=== PATIENT | female | born 2000 | race Caucasian/White ===

== ENCOUNTER 2019-12-24 05:59 | Observation (INO) | payer MEDICAID, OTHER ==
[~2019-12-24] VITALS: Ht 165.1 cm; Wt 105.2 kg
[2019-12-24 07:19] LABS: BASOPHILS % 0.5 % (0.0-2.0); EOSINOPHILS % 1.4 % (0.0-5.0); HEMATOCRIT. 27.8 % (36.0-48.0); HEMOGLOBIN. 9.1 g/dL (12.0-16.0); LYMPHOCYTES % 20.7 % (20.0-50.0); MEAN CORPUSCULAR HEMOGLOBIN 24.4 pg (28.0-32.0); MEAN CORPUSCULAR VOLUME 74.6 fL (81.0-99.0); MEAN PLATELET VOLUME 8.4 fl (7.4-10.4); MONOCYTES % 4.5 % (2.0-8.0); NEUTROPHILS % 72.9 % (40.0-76.0); PLATELET 270 x1000/uL (130-400); RED BLOOD CELL COUNT 3.73 mill/uL (4.2-5.4); RED CELL DISTRIBUTION WIDTH 15.8 % (11.6-14.6)
[2019-12-24 07:25] LABS: CLARITY URINE CLEAR (CLEAR); COLOR URINE DK YELLOW (YELLOW); KETONES URINE 1+ (NEGATIVE); LEUKOCYTE ESTERASE URINE NEGATIVE (NEGATIVE); NITRITE URINE NEGATIVE (NEGATIVE); OCCULT BLOOD URINE NEGATIVE (NEGATIVE); PH URINE 6.5 (4.5-8.0); PROTEIN URINE NEGATIVE (NEGATIVE); SPECIFIC GRAVITY URINE 1.027 (1.005-1.030)
[2019-12-24 07:36] LABS: CHLORIDE 108 mEq/L (98-107)
== END 2019-12-24 09:00 | disposition home or self-care (01) ==
LOC: L&D 05:59 → 8 EST LDRP 06:37
PROVIDERS: ADMIT Obstetrics & Gynecology; ATTEND Obstetrics & Gynecology
DX: O99.89 Other specified diseases and conditions complicating pregnancy, childbirth and the puerperium (principal); M54.5 Low back pain; Z3A.34 34 weeks gestation of pregnancy
CPT/HCPCS: 36415; 59025; 80048; 81003; 85025; G0378; 99281

== ENCOUNTER 2020-01-16 02:48 | Observation (INO) | payer MEDICAID ==
[~2020-01-16] VITALS: Ht 165.1 cm; Wt 104.3 kg
[2020-01-16] MEDS ORDERED: PNV1TABL76 PO (04:23)
[2020-01-16] MEDS ORDERED: LACTATED RINGERS 1,000 ML IV SCH (04:30)
[2020-01-16 06:24] LABS: CLARITY URINE TURBID (CLEAR); COLOR URINE DK YELLOW (YELLOW); KETONES URINE NEGATIVE (NEGATIVE); LEUKOCYTE ESTERASE URINE 1+ (NEGATIVE); NITRITE URINE POSITIVE (NEGATIVE); OCCULT BLOOD URINE NEGATIVE (NEGATIVE); PROTEIN URINE TRACE (NEGATIVE); SPECIFIC GRAVITY URINE 1.036 (1.005-1.030)
[2020-01-16] MEDS ORDERED: CEFTRIAXONE 2 G in DEXTROSE 5% WATER 50 ML IV SCH (08:00)
[2020-01-16] MEDS ORDERED: CEFTRIAXONE 2 G in DEXT 5% WATER 100 ML IV SCH (08:00)
== END 2020-01-16 08:55 | disposition home or self-care (01) ==
LOC: 8 EST LDRP 02:48
PROVIDERS: ADMIT Obstetrics & Gynecology; ATTEND Obstetrics & Gynecology
DX: O26.893 Other specified pregnancy related conditions, third trimester (principal); R10.30 Lower abdominal pain, unspecified; O99.89 Other specified diseases and conditions complicating pregnancy, childbirth and the puerperium; M54.5 Low back pain; O62.9 Abnormality of forces of labor, unspecified; Z3A.36 36 weeks gestation of pregnancy; Z98.891 History of uterine scar from previous surgery
CPT/HCPCS: 59025; 81003; 96361; 96365; G0378; 96360; 99281; J0696; J7060

== ENCOUNTER 2020-01-22 13:06 | Observation (INO) | payer MEDICAID ==
[~2020-01-22] VITALS: Ht 167.6 cm; Wt 106.6 kg
[~2020-01-22 13:06] MED LIST: PNV1TABL76 PO
[2020-01-22] MEDS ORDERED: DEXT 5%/LACTATED RINGERS 1,000 ML IV NR (14:15)
[2020-01-22 15:01] LABS: CHLORIDE 107 mEq/L (98-107)
[2020-01-22 15:31] LABS: CLARITY URINE CLOUDY (CLEAR); COLOR URINE DK YELLOW (YELLOW); KETONES URINE 3+ (NEGATIVE); LEUKOCYTE ESTERASE URINE 1+ (NEGATIVE); NITRITE URINE NEGATIVE (NEGATIVE); OCCULT BLOOD URINE NEGATIVE (NEGATIVE); PH URINE 6.5 (4.5-8.0); PROTEIN URINE TRACE (NEGATIVE); SPECIFIC GRAVITY URINE 1.026 (1.005-1.030)
[2020-01-22 15:57] LABS: BASOPHILS % 0.2 % (0.0-2.0); EOSINOPHILS % 0.3 % (0.0-5.0); HEMATOCRIT. 30.2 % (36.0-48.0); HEMOGLOBIN. 9.6 g/dL (12.0-16.0); LYMPHOCYTES % 10.5 % (20.0-50.0); MEAN CORPUSCULAR HEMOGLOBIN 22.8 pg (28.0-32.0); MEAN CORPUSCULAR VOLUME 71.9 fL (81.0-99.0); MEAN PLATELET VOLUME 9.1 fl (7.4-10.4); MONOCYTES % 4.1 % (2.0-8.0); NEUTROPHILS % 84.9 % (40.0-76.0); PLATELET 242 x1000/uL (130-400); RED BLOOD CELL COUNT 4.21 mill/uL (4.2-5.4); RED CELL DISTRIBUTION WIDTH 16.9 % (11.6-14.6)
[2020-01-22] MEDS ORDERED: CEFTRIAXONE 2 G in DEXTROSE 5% WATER 50 ML IV ONE (16:00)
[2020-01-22] MEDS ORDERED: CEFTRIAXONE 2 G PREMIX 50 ML IV ONE (16:00)
== END 2020-01-22 17:50 | disposition home or self-care (01) ==
LOC: L&D 13:06
PROVIDERS: ADMIT Obstetrics & Gynecology; ATTEND Obstetrics & Gynecology
DX: O21.2 Late vomiting of pregnancy (principal); Z20.828 Contact with and (suspected) exposure to other viral communicable diseases; O26.893 Other specified pregnancy related conditions, third trimester; R19.7 Diarrhea, unspecified; Z3A.37 37 weeks gestation of pregnancy
CPT/HCPCS: 36415; 59025; 80053; 81003; 85025; 96365; G0378; J0696; J7060; U0003; 96360; 99281

== ENCOUNTER → 2020-02-01 | Outpatient (CLI) | payer MEDICAID | END | disposition home or self-care (01) | LOC: LAB 09:11 | PROVIDERS: ATTEND Obstetrics & Gynecology | DX: Z20.828 Contact with and (suspected) exposure to other viral communicable diseases (principal) | CPT/HCPCS: C9803; U0003 ==

== ENCOUNTER 2020-07-05 20:52 | Inpatient (IN) | payer MEDICAID ==
[~2020-07-05] VITALS: Ht 165.1 cm; Wt 97.5 kg
[2020-07-05] MEDS ORDERED: KETOROLAC 60MG/2ML VIAL IM STA (21:40)
[2020-07-05] MEDS ORDERED: HYDROCODONE/ACETAMINOPHEN 5/325MG TABLET PO STA (21:40)
[2020-07-05 22:16] LABS: CLARITY URINE TURBID (CLEAR); COLOR URINE YELLOW (YELLOW); KETONES URINE NEGATIVE (NEGATIVE); LEUKOCYTE ESTERASE URINE NEGATIVE (NEGATIVE); NITRITE URINE NEGATIVE (NEGATIVE); OCCULT BLOOD URINE NEGATIVE (NEGATIVE); PROTEIN URINE NEGATIVE (NEGATIVE); SPECIFIC GRAVITY URINE 1.026 (1.005-1.030); UROBILINOGEN URINE 0.2 E.U./dL (0.2-1.0)
[2020-07-05 22:19] LABS: BASOPHILS % 0.3 % (0.0-2.0); EOSINOPHILS % 2.2 % (0.0-5.0); HEMATOCRIT. 35.2 % (36.0-48.0); HEMOGLOBIN. 11.6 g/dL (12.0-16.0); LYMPHOCYTES % 23.5 % (20.0-50.0); MEAN CORPUSCULAR HEMOGLOBIN 24.4 pg (28.0-32.0); MEAN CORPUSCULAR VOLUME 74.1 fL (81.0-99.0); MEAN PLATELET VOLUME 8.2 fl (7.4-10.4); MONOCYTES % 4.4 % (2.0-8.0); NEUTROPHILS % 69.6 % (40.0-76.0); PLATELET 304 x1000/uL (130-400); RED BLOOD CELL COUNT 4.75 mill/uL (4.2-5.4); RED CELL DISTRIBUTION WIDTH 16.4 % (11.6-14.6)
[2020-07-05 22:23] LABS: CHLORIDE 109 mEq/L (98-107)
[2020-07-05 22:32] LABS: HCG SCREEN NEGATIVE
[2020-07-05] MEDS ORDERED: PIPERACILLIN/TAZ 3.375G PREMIX 50 ML IV ONE (23:00)
[2020-07-06] MEDS ORDERED: HYDROCODONE/ACETAMINOPHEN 5/325MG TABLET PO SCH (00:30)
[2020-07-06] MEDS ORDERED: MORPHINE SULFATE 2 MG/ML CPJ (NOT FOR IM USE) IV SCH (02:30)
[2020-07-06] MEDS ORDERED: ONDANSETRON HCL 4MG/2ML INJ IV PRN (02:30)
[2020-07-06] MEDS: MORPHINE SULFATE 2 MG/ML CPJ (NOT FOR IM USE) IV PRN ×2 (02:57→21:21)
[2020-07-06] MEDS ORDERED: LEVOFLOXACIN 500MG PREMIX 100 ML IV SCH (03:00)
[2020-07-06 03:13] VITALS: BP 110/65
[2020-07-06] MEDS: DEXT 5%/0.45% NACL 1000ML 1,000 ML IV SCH ×3 (03:45→19:25)
[2020-07-06 04:00] VITALS: BP 100/54
[2020-07-06 08:00] VITALS: BP 107/61
[2020-07-06 11:54] VITALS: BP 94/56
[2020-07-06 16:00] VITALS: BP 102/60
[2020-07-06 20:00] VITALS: BP 108/61
[2020-07-07] VITALS: BP 107/53
[2020-07-07 04:00] VITALS: BP 97/52
[2020-07-07] MEDS: DEXT 5%/0.45% NACL 1000ML 1,000 ML IV SCH ×3 (04:32→18:08)
[2020-07-07] MEDS ORDERED: SKIN ADHESIVE 0.7 GM EA TOP ONE (07:33)
[2020-07-07] MEDS ORDERED: BUPIVACAINE HCL 0.5% (5MG/ML) 50ML ONE (07:34)
[2020-07-07 08:00] VITALS: BP 104/66
[2020-07-07] MEDS: LEVOFLOXACIN 500MG PREMIX 100 ML IV SCH (09:46)
[2020-07-07 09:55] LABS: BASOPHILS % 0.4 % (0.0-2.0); EOSINOPHILS % 4.4 % (0.0-5.0); HEMATOCRIT. 35.2 % (36.0-48.0); HEMOGLOBIN. 11.2 g/dL (12.0-16.0); LYMPHOCYTES % 29.1 % (20.0-50.0); MEAN CORPUSCULAR HEMOGLOBIN 23.7 pg (28.0-32.0); MEAN CORPUSCULAR VOLUME 74.3 fL (81.0-99.0); MEAN PLATELET VOLUME 8.4 fl (7.4-10.4); MONOCYTES % 4.5 % (2.0-8.0); NEUTROPHILS % 61.6 % (40.0-76.0); PLATELET 256 x1000/uL (130-400); RED BLOOD CELL COUNT 4.74 mill/uL (4.2-5.4); RED CELL DISTRIBUTION WIDTH 16.6 % (11.6-14.6)
[2020-07-07 10:06] LABS: PARTIAL THROMBOPLASTIN TIME 30.2 sec (23.4-31.0); PROTHROMBIN TIME 10.6 sec (9.6-11.0)
[2020-07-07 10:18] LABS: CHLORIDE 109 mEq/L (98-107)
[2020-07-07] MEDS ORDERED: HYDROCODONE/ACETAMINOPHEN 5/325MG TABLET PO PRN ×2 (10:45)
[2020-07-07] MEDS ORDERED: ONDANSETRON HCL 4MG/2ML INJ IV PRN (10:45)
[2020-07-07] MEDS: DEXT 5%/0.45% NACL KCL 20MEQ/L 1,000 ML IV SCH ×2 (12:00→22:04)
[2020-07-07] MEDS ORDERED: ACETAMINOPHEN 500MG TABLET ONE (12:18)
[2020-07-07] MEDS ORDERED: FENTANYL CITRATE/PF 50MCG/ML 2ML VIAL ONE (12:43)
[2020-07-07] MEDS ORDERED: PROPOFOL 200MG/20ML VIAL IV ONE ×2 (12:44→13:02)
[2020-07-07] MEDS ORDERED: MIDAZOLAM HCL 2 MG/2 ML VIAL ONE (12:46)
[2020-07-07] MEDS ORDERED: METOCLOPRAMIDE HCL 10MG/2ML VIAL ONE (12:47)
[2020-07-07] MEDS ORDERED: ONDANSETRON HCL 4MG/2ML INJ ONE (12:47)
[2020-07-07] MEDS ORDERED: VECURONIUM BROMIDE 10 MG/VIAL IV ONE (12:48)
[2020-07-07] MEDS ORDERED: SUCCINYLCHOLINE CHLORIDE 200MG/10ML IV ONE (12:48)
[2020-07-07] MEDS ORDERED: SODIUM CHLORIDE 0.9% 10ML VIAL ONE (12:49)
[2020-07-07] MEDS ORDERED: NEOSTIGMINE METHYLSULFATE 1MG/ML 10 ML VIAL ONE (13:39)
[2020-07-07] MEDS ORDERED: KETOROLAC 30MG/ML VIAL ONE (13:41)
[2020-07-07] MEDS ORDERED: GLYCOPYRROLATE 0.2 MG/ML 2ML VIAL ONE (13:41)
[2020-07-07] MEDS ORDERED: HYDROMORPHONE HCL/PF 2MG/ML (OR) ONE (14:01)
[2020-07-07] MEDS ORDERED: HYDROMORPHONE HCL/PF 2MG/ML CPJ IV PRN (14:50)
[2020-07-07] MEDS ORDERED: HYDROMORPHONE HCL/PF 2MG/ML CPJ ONE (14:53)
[2020-07-07 16:00] VITALS: BP 106/62
[2020-07-07 20:48] VITALS: BP 113/71
[2020-07-07 23:58] VITALS: BP 104/69
[2020-07-08] MEDS: DEXT 5%/0.45% NACL 1000ML 1,000 ML IV SCH (05:07)
[2020-07-08 05:21] VITALS: BP 102/66
[2020-07-08 08:00] VITALS: BP 110/70
[2020-07-08] MEDS: LEVOFLOXACIN 500MG PREMIX 100 ML IV SCH (08:21)
[2020-07-08] MEDS: DEXT 5%/0.45% NACL KCL 20MEQ/L 1,000 ML IV SCH (08:21)
[2020-07-08 11:07] VITALS: BP 124/75
[2020-07-08 12:00] VITALS: BP 114/74
== END 2020-07-08 12:50 | disposition home or self-care (01) | DRG 263 ==
LOC: ER 21:01 → 6EST 23:26 → ENRESERV 07-06 01:30
PROVIDERS: ADMIT Internal Medicine; ATTEND Internal Medicine
PROC: 0FT44ZZ Resection of Gallbladder, Percutaneous Endoscopic Approach (ICD-10-PCS; principal; 2020-07-07)
DX: K80.00 Calculus of gallbladder with acute cholecystitis without obstruction (principal); E87.8 Other disorders of electrolyte and fluid balance, not elsewhere classified; Z20.822 Contact with and (suspected) exposure to COVID-19; E66.9 Obesity, unspecified; E44.1 Mild protein-calorie malnutrition; Z68.35 Body mass index [BMI] 35.0-35.9, adult; Z98.891 History of uterine scar from previous surgery
CPT/HCPCS: 36415; 76705; 80048; 80053; 81003; 84703; 85025; 87426; 88304; 93005; 99285; J0330; J1170; J1885; J1956; J2250; J2270; J2405; J2543; J2704; J2710; J2765; J3010; J3490

== ENCOUNTER 2021-09-07 00:19 | Emergency (ER) | payer SELFPAY ==
[~2021-09-07] VITALS: Ht 165.1 cm; Wt 108.0 kg
[2021-09-07] MEDS ORDERED: IBUPROFEN 600MG TABLET PO STA (03:09)
[2021-09-07 05:23] VITALS: BP 121/66
[2021-09-07] MEDS ORDERED: IBUP-2029 PO (05:24)
[2021-09-07] MEDS ORDERED: CYCL5TAB PO (05:24)
== END 2021-09-07 05:57 | disposition home or self-care (01) ==
LOC: ER 00:19
DX: M54.50 Low back pain, unspecified (principal); Z90.49 Acquired absence of other specified parts of digestive tract; Z98.890 Other specified postprocedural states; V43.52XA Car driver injured in collision with other type car in traffic accident, initial encounter; Y93.89 Activity, other specified; Y92.488 Other paved roadways as the place of occurrence of the external cause
CPT/HCPCS: 72100; 81025; 99283